=== PATIENT | male | born 1940 | race Caucasian/White ===

== ENCOUNTER 2019-05-11 09:52 | Observation (INO) ==
--- NOTE | 2019-05-11 10:03 | EKG Report ---
Test Performed on : 05/11/2019 09:54:16 AM Test Reason : CP Blood Pressure : / mmHG Vent. Rate : 081 BPM Atrial Rate : 081 BPM P-R Int : 186 ms QRS Dur : 072 ms QT Int : 384 ms P-R-T Axes : 037 005 032 degrees QTc Int : 446 ms Sinus rhythm. with frequent premature ventricular complexes. Otherwise normal ECG When compared with ECG of 06-AUG-2018 19:15, premature ventricular complexes. are now present Unconfirmed Result
--- NOTE | 2019-05-11 10:51 | Diag Imaging Result Doc PS360 ---
EXAM: CHEST-1 VIEW 05/11/2019 HISTORY: cp TECHNIQUE: AP portable upright at 1044 COMMENT: Compared to 08/06/2018 there has been no significant change in the appearance the chest. IMPRESSION: Stable chest. Electronically signed by Roberto Franz 05/11/2019 10:48 AM
[2019-05-11 11:01] LABS: BILIRUBIN URINE NEGATIVE (NEGATIVE); BLOOD URINE NEGATIVE (NEGATIVE); COLOR YELLOW; GLUCOSE URINE NEGATIVE (NEGATIVE); KETONE URINE NEGATIVE (NEGATIVE); LEUKOCYTES URINE SMALL (NEGATIVE); NITRITE URINE NEGATIVE (NEGATIVE); PH URINE 6.5; PROTEIN URINE NEGATIVE (NEGATIVE); SP GRAVITY URINE 1.013; TURBIDITY URINE CLEAR (CLEAR); URINE SOURCE CLEAN CATCH; UROBILINOGEN URINE NORMAL (NORMAL)
[2019-05-11 11:02] LABS: UR EPITHELIAL CELLS <10 /HPF (<10); URINE BACTERIA NEGATIVE /HPF; URINE RBC <10 /HPF (<10)
[2019-05-11 11:11] LABS: BASO# 0.02 X1000 (0.0-0.2); BASO% 0.3 % (0.0-0.8); EOS# 0.19 X1000 (0.0-0.7); EOS% 2.7 % (0.0-10.0); HEMATOCRIT 40.9 % (42.0-52.0); HEMOGLOBIN 14.4 g/dL (14.0-18.0); IMM GRAN# 0.03 X1000 (0.0-0.04); IMM GRAN% 0.4 % (0.0-0.5); LYMPH# 1.26 X1000 (1.2-3.4); LYMPH% 18.2 % (20.5-51.1); MCH 29.8 PG (27-31); MCHC 35.2 g/dL (33-37); MCV 84.5 FL (81-99); MONO# 0.77 X1000 (0.11-0.59); MONO% 11.1 % (1.7-9.3); MPV 9.9 FL (7.4-10.4); NEUT# 4.64 X1000 (1.4-6.5); NEUT% 67.3 % (42.2-75.2); PLT 234 X1000 (130-400); RBC 4.84 XMIL (4.7-6.1); RDW 13.1 % (11.5-14.5); WBC 6.91 X1000 (4.8-10.8)
[2019-05-11] MEDS ORDERED: DILAUDID IV ONE (11:12)
[2019-05-11] MEDS ORDERED: ZOFRAN IV ONE (11:12)
[2019-05-11 11:23] LABS: AGAP 11; ALB/GLOB RATIO 1.7; ALBUMIN 3.9 g/dL (3.5-5.0); ALKALINE PHOSPHATASE 86 U/L (32-122); BUN 20 mg/dL (8-22); CALCIUM 8.5 mg/dL (8.8-10.2); CHLORIDE 101 mmol/L (98-107); COSMO 287; CREATININE 0.9 mg/dL (0.7-1.2); ESTIMATED GFR > 60; GLUCOSE 218 mg/dL (70-104); GOT 15 U/L (10-34); GPT 13 U/L (10-44); SODIUM 139 mmol/L (136-145); TCO2 27 mmol/L (25-35); TOTAL BILIRUBIN 0.72 mg/dL (0.20-1.00); TOTAL PROTEIN 6.2 g/dL (6.3-8.3)
[2019-05-11 11:33] LABS: INR 1.13; PROTIME 14.7 Seconds (11.0-16.0)
[2019-05-11 11:34] LABS: PTT 36.6 Seconds (22.3-41.8)
--- NOTE | 2019-05-11 14:50 | PROVIDER DOCUMENTATION ---
This chart was entered by Jaleesa Harvey Scribe, acting as scribe for Luis Miguel Oliva MD. HPI-Chest Pain - General Chief Complaint: Chest Pain Stated Complaint: CP Time Seen by Provider: 05/11/19 10:10 Source: patient Allergies/Adverse Reactions: Patient Allergies Allergy/AdvReac Type Severity Reaction Status Date / Time No Known Allergies Allergy Verified 05/11/19 10:22 Home Medications: Home Medication List Medication Instructions Recorded Confirmed Last Taken Type ATORVAstatin [Lipitor] 40 mg PO QHS 05/11/19 05/11/19 05/10/19 History Amlodipine Besylate/Benazepril 1 ea PO QAM 05/11/19 05/11/19 05/11/19 History [Amlodipine-Benazepril 10-20 mg] Aspirin [Aspirin EC] 81 mg PO BID 05/11/19 05/11/19 05/11/19 History 324mg Carvedilol [Coreg] 12.5 mg PO BID 05/11/19 05/11/19 05/11/19 History Cetirizine HCl [Zyrtec] 10 mg PO QAM 05/11/19 05/11/19 05/11/19 History Hydrochlorothiazide 12.5 mg PO QAM 05/11/19 05/11/19 05/11/19 History Meclizine [Antivert] 12.5 mg PO BID 05/11/19 05/11/19 05/11/19 History Olanzapine [Zyprexa] 5 mg PO QHS 05/11/19 05/11/19 05/10/19 History Pantoprazole [Protonix] 40 mg PO QAM 05/11/19 05/11/19 05/11/19 History - History of Present Illness-CP Nature of Presenting Problem: 79yom presents to ED cc left side chest pain that doesn't radiate anywhere but increases with movement and deep breathing since 10pm last night and subsided at 2am. Pt reports the pain started back this morning but is mild. Pt denies injury, n/v/d or SOB. Pt has hx of HTN and hyperlipidemia. Pt is in no acute distress upon exam. Location: reports: other (left side) Chest Pain Radiation: reports: no radiation Quality of Pain: reports: sharp Severity in ED: mild Onset/Duration: last night (10pm) Timing: still present Context/Activities at Onset: reports: light activity Modifying Factors: worse with: breathing, movement Associated Symptoms: reports: denies symptoms Nitro Today/Relief: no nitro taken today Prior Chest Pain/Cardiac Workup: reports: no prior chest pain Similar Symptoms Previously?: No Recently Seen Here or By Another Healthcare Provider: No Review of Systems - Adult - REVIEW OF SYSTEMS - ADULT Constitutional: reports: see HPI. denies: chills, fever, fatique Eyes: reports: no symptoms reported Ears, Nose, Mouth & Throat: reports: no symptoms reported Cardiovascular: reports: see HPI, chest pain Respiratory: reports: see HPI. denies: shortness of breath, wheezing Gastrointestinal: reports: see HPI. denies: diarrhea, nausea, vomiting Genitourinary: reports: no symptoms reported Musculoskeletal: reports: no symptoms reported Integumentary: reports: no symptoms reported Neurological: reports: no symptoms reported Psychiatric: reports: no symptoms reported Endocrine: reports: no symptoms reported Hematologic/Lymphatic: reports: no symptoms reported Allergic/Immunologic: reports: no symptoms reported All Other Systems: Reviewed and Negative Past History - Adult - PAST MEDICAL HISTORY-ADULT Review of Records: reports: Nursing Assessment Review, Medications Reviewed, Social history reviewed & non-contributory. Major Childhood Illnesses: reports: denies history Cardiovascular: reports: denies history Respiratory: reports: denies history Gastrointestinal: reports: denies history Obstetrical/Gynecological: reports: denies history Genitourinary: reports: denies history Musculoskeletal: reports: denies history Neurological: reports: denies history Endocrine/Immune: reports: denies history Other Conditions: reports: denies history - IMMUNIZATION STATUS Childhood Immunizations: See Nurse Assessment Flu Vaccine: See Nurse Assessment - FAMILY HISTORY Family History: reviewed, not pertinent - SOCIAL HISTORY Smoking: denies Physical Exam-General - PHYSICAL EXAM-ADULT Initial Vital Signs Reviewed: Yes - CONSTITUTIONAL General Appearance: appears well, alert, no apparent distress. negative: anxious, combative - EYES Eyes: PERRL/EOMI, pink conjunctivae. negative: photophobia - HEAD, EARS, NOSE, MOUTH & THROAT HENMT: normocephalic/atraumatic, moist mucous membranes. negative: angioedema - RESPIRATORY Respiratory: chest non-tender, lungs clear, normal breath sounds. negative: stridor, wheezing - CARDIOVASCULAR Cardiovascular: normal peripheral pulses, regular rate, rhythm, no edema. negative: bradycardia, tachycardia - MUSCULOSKELETAL Extremity: normal inspection. negative: deformity - SKIN Integumentary: normal color. negative: diaphoresis, jaundice, rash - PSYCHIATRIC Psych/Mental Status: normal mood/affect, oriented x 3. negative: anxious, disheveled - HEART Score HEART Score: History: Moderately Suspicious HEART Score: ECG: Non-Specific Repolarization Disturbance/LBBB/PM HEART Score: Age: > or = 65 Years HEART Score: Risk Factors for Atherosclerotic Disease: 1 or 2 Risk Factors HEART Score: Troponin: < or = Normal Limit Total HEART Score:: 5 Progress - PLAN OF CARE/RESULTS Progress/Plan/Lab Results: Vital Signs - 8 hr 05/11/19 09:56 Temperature 97.9 F Pulse Rate 84 Respiratory Rate 18 Blood Pressure 148/74 O2 Sat by Pulse Oximetry 95 Laboratory Results - last 24 hr 05/11/19 05/11/19 05/11/19 10:40 10:40 10:40 WBC 6.91 RBC 4.84 Hgb 14.4 Hct 40.9 L MCV 84.5 MCH 29.8 MCHC 35.2 RDW Std Deviation 13.1 Plt Count 234 MPV 9.9 Immature Gran % (Auto) 0.4 Neut % (Auto) 67.3 Lymph % (Auto) 18.2 L [place] % (Auto) 11.1 H Eos % (Auto) 2.7 Baso % (Auto) 0.3 Immature Gran # (Auto) 0.03 Neut # (Auto) 4.64 Lymph # (Auto) 1.26 [place] # (Auto) 0.77 H Eos # (Auto) 0.19 Baso # (Auto) 0.02 PT INR PTT (Actin FS) Sodium 139 Potassium 4.0 Chloride 101 Carbon Dioxide 27 Anion Gap 11 BUN 20 Creatinine 0.9 Estimated GFR/1.73 m2 > 60 BUN/Creatinine Ratio 22 Glucose 218 H Calculated Osmolality 287 Calcium 8.5 L Total Bilirubin 0.72 AST 15 ALT 13 Alkaline Phosphatase 86 Troponin T Grj-I-Yjghkbvnist Pept 200 Total Protein 6.2 L Albumin 3.9 Globulin 2.3 Albumin/Globulin Ratio 1.7 Urine Source Urine Color Urine Turbidity Urine pH Ur Specific [place] Urine Protein Ur Glucose (Stick) Ur Ketones (Stick) Urine Blood Urine Nitrite Urine Bilirubin Urobilinogen Dipstick Urine Leukocytes Urine WBC (Auto) Urine RBC (Auto) U Epithel Cells (Auto) Urine Bacteria (Auto) 05/11/19 05/11/19 05/11/19 10:40 10:40 10:54 WBC RBC Hgb Hct MCV MCH MCHC RDW Std Deviation Plt Count MPV Immature Gran % (Auto) Neut % (Auto) Lymph % (Auto) [place] % (Auto) Eos % (Auto) Baso % (Auto) Immature Gran # (Auto) Neut # (Auto) Lymph # (Auto) [place] # (Auto) Eos # (Auto) Baso # (Auto) PT 14.7 INR 1.13 PTT (Actin FS) 36.6 Sodium Potassium Chloride Carbon Dioxide Anion Gap BUN Creatinine Estimated GFR/1.73 m2 BUN/Creatinine Ratio Glucose Calculated Osmolality Calcium Total Bilirubin AST ALT Alkaline Phosphatase Troponin T < 0.010 [id number]-Zfsuintgfxm Pept Total Protein Albumin Globulin Albumin/Globulin Ratio Urine Source CLEAN CATCH Urine Color YELLOW Urine Turbidity CLEAR Urine pH 6.5 Ur Specific [place] 1.013 Urine Protein NEGATIVE Ur Glucose (Stick) NEGATIVE Ur Ketones (Stick) NEGATIVE Urine Blood NEGATIVE Urine Nitrite NEGATIVE Urine Bilirubin NEGATIVE Urobilinogen Dipstick NORMAL Urine Leukocytes SMALL A Urine WBC (Auto) 10-20 A Urine RBC (Auto) <10 U Epithel Cells (Auto) <10 Urine Bacteria (Auto) NEGATIVE Orders Category Date Time Status CHEST-1 VIEW [RAD] Stat Exams 05/11/19 10:10 Completed CBC WITH ELECTRONIC DIFF [HEME] Stat Lab 05/11/19 10:40 Completed COMPREHENSIVE METABOLIC PANEL [CHEM] Stat Lab 05/11/19 10:40 Completed PRO B-NATRIURETIC PEPTIDE Stat Lab 05/11/19 10:40 Completed PT [PROTIME WITH INR] [COAG] Stat Lab 05/11/19 10:40 Completed PTT [COAG] Stat Lab 05/11/19 10:40 Completed TROPONIN T Stat Lab 05/11/19 10:40 Completed TROPONIN T Stat Lab 05/11/19 14:46 Ordered URINALYSIS W/POSS RFLX CULT [URINALYSIS] Stat Lab 05/11/19 10:54 Completed Hydromorphone [Dilaudid] Med 05/11/19 11:12 Discontinued 1 mg IV NOW ONE Ondansetron [Zofran] Med 05/11/19 11:12 Discontinued 4 mg IV NOW ONE EKG [EKG] Stat Ther 05/11/19 10:00 Draft EKG [EKG] Stat Ther 05/11/19 11:12 Ordered EKG [EKG] Stat Ther 05/11/19 14:45 Ordered Result Diagrams: 05/11/19 10:40 05/11/19 10:40 - REASSESSMENT Reassessment #1 Time Reassessed: 11:22 Status: worsening (pt reports pain is increased but is refusing pain meds that were ordered) - EKG 1 Time of EKG reading by physician:: 09:54 EKG Read and Signed by:: Luis Miguel Oliva EKG Interpretation (*Must complete 3 of following elements*): Normal Rate: 81 Rhythm: sinus w/frequent PVC QRS: PVC's CO Interval: normal - XRAY 1 XRAY: Bilateral XRAY Study: Chest Impression: See EMR Report (IMPRESSION: Stable chest. Electronically signed by Roberto Franz 05/11/2019 10:48 AM) - CONSULTS/PCP/HOSPITALIST Notification #1 *Consult/PCP/Hospitalist*: Kristen for hospitalist Time Discussed: 14:48 Consult Disposition: Will see in ED, Admit Departure - Departure Date of Disposition Decision: 05/11/19 Time of Disposition Decision: 14:49 DIAGNOSIS: Chest pain, HTN (hypertension) Disposition: ADMITTED INPATIENT 09 Certified Medical Emergency: Emergent Condition: Fair Referrals and Follow-Ups: Paulo Trivedi CRNP [Primary Care Provider] - - Critical Care Note This patient required my direct & personal management of CC.: No Attestation - Physician/ BRYNN Attestation Patient care was provided by Advanced Practice Provider:: No The physician spent face to face time with patient:: Yes Advanced Practice Provider documentation review:: Supervising physician onsite and consulted in the evaluation and care of this patient. The physician did have a face to face encounter with the patient. This chart was documented by the indicated scribe, (Jaleesa Harvey Scribe) and accurately reflects the services I performed and decisions made by me, Luis Miguel Oliva MD, as attested by the provider's signature.
--- NOTE | 2019-05-11 15:04 | EKG Report ---
Test Performed on : 05/11/2019 2:44:19 PM Test Reason : chest pain Blood Pressure : / mmHG Vent. Rate : 069 BPM Atrial Rate : 069 BPM P-R Int : 180 ms QRS Dur : 090 ms QT Int : 432 ms P-R-T Axes : 030 008 021 degrees QTc Int : 462 ms Normal sinus rhythm. Increased R/S ratio in V1, consider early transition or posterior infarct Abnormal ECG When compared with ECG of 11-MAY-2019 09:54, (Unconfirmed) premature ventricular complexes. are no longer present Unconfirmed Result
[2019-05-11] MEDS ORDERED: TYLENOL PO PRN (18:01)
[2019-05-11] MEDS ORDERED: ZOFRAN IV PRN (18:01)
[2019-05-11] MEDS ORDERED: NITROGLYCERIN SL PRN (18:01)
[2019-05-11] MEDS ORDERED: LIPITOR PO SCH (21:00)
[2019-05-11] MEDS ORDERED: ZYPREXA PO SCH (21:00)
--- NOTE | 2019-05-11 21:21 | HISTORY AND PHYSICAL ---
PRIMARY CARE PROVIDER: BÁRBARA Murphy. NEUROSURGEON: Dr. Blank. CARDIOLOGY: He has seen Dr. Burnett in the past, but it has been years ago. CHIEF COMPLAINT: Chest pain. HISTORY OF PRESENT ILLNESS: Mr. 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 He reported around 10 p.m. last night until 3 a.m., he started having a "squeezing chest pain on the left side." He rated it an 8 to 9/10. There was some associated diaphoresis, but no shortness of breath. No more than his normal dizziness. No palpitations. No nausea, no vomiting. There was no radiation. The only thing that relieved his pain was taking a baby aspirin. Even the movement of his head made the pain worse, but after 3 a.m., it has essentially resolved, and he reported maybe only a slight residual pain at this time. We will admit him to a medical telemetry floor for chest pain rule out. His 2 sets of cardiac enzymes are now negative. REVIEW OF SYSTEMS: A 12-point review of systems is completely negative, except for those mentioned in HPI. PAST MEDICAL HISTORY: 1. Acoustic neuroma. 2. Hypertension. 3. Hyperlipidemia. 4. Anxiety. PAST SURGICAL HISTORY: 1. Surgery on his acoustic neuroma. 2. Bilateral knee replacement. 3. Bilateral cataract surgery. SOCIAL HISTORY: He is . He has a daughter at the bedside. He has been for 57 years. No tobacco, alcohol, or illicit drug use. ALLERGIES: Geodon, Ativan. They cause him to be somewhat aggressive and had to be put in restraints. HOME MEDICATIONS: Still being compiled. PHYSICAL EXAMINATION: VITAL SIGNS: Temperature is 97.9 degrees, heart rate 84, respirations 18, blood pressure 148/74, O2 is 95% on room air. GENERAL: Mr. Dozier is a pleasant, 79-year-old, male, who is sitting up in the bed in no acute distress. HEENT: Atraumatic, normocephalic. PERRL. NECK: Supple. Trachea midline. CARDIOVASCULAR: S1, S2 appreciated. No murmurs, gallops, rubs noted. RESPIRATORY: Lung sounds clear bilaterally. GASTROINTESTINAL: Obese, soft, nontender, nondistended. Positive bowel sounds in 4 quadrants. LOWER EXTREMITIES: Trace edema. NEUROLOGIC: No focal deficits noted. However, he does walk with a walker at home secondary to chronic dizziness from his acoustic neuroma after surgery. DIAGNOSTIC DATA: EKG, normal sinus rhythm with frequent PVC. Chest x-ray is stable. Followup EKG, normal sinus rhythm at 69 beats per minute. LABORATORY: Two sets of troponins have been negative. CBC, essentially unremarkable. CMP, sodium 139, potassium 4.0, BUN 20, creatinine 0.9, blood glucose is 218. Urinalysis is negative for bacteria, negative for nitrites. ASSESSMENT AND PLAN: 1. Chest pain rule out. Two sets of cardiac enzymes have been negative. We will get an EKG, consult Cardiology, and make him n.p.o. after midnight. Continue on full-dose aspirin. Set him up for a stress test in the a.m. 2. Hyperglycemia. We will check a hemoglobin A1c in the a.m. and continue with patterned blood sugars. He has no known diabetic history. 3. Acoustic neuroma, status post surgery with chronic dizziness. Aware. We will continue his Antivert when reconciled. 4. Hypertension. 5. Hyperlipidemia. 6. Anxiety. We will continue all home medications once they have been verified. 7. Further recommendations to follow physician evaluation, laboratory, and diagnostic data. Dictated by BÁRBARA Ricketts for Alycia Redding MD cc: MD Paulo Boykin CRNP Joel Pickett
[2019-05-11] MEDS: COREG PO SCH (21:52)
--- NOTE | 2019-05-12 06:24 | Diag Imaging Result Doc PS360 ---
CHEST-PORTABLE - 05/12/2019 INDICATION: Chest Pain COMPARISON: 05/11/2019 FINDINGS: The lungs are normally expanded and clear. Heart size and mediastinal contours are normal. No pneumothorax or pleural effusion. IMPRESSION: Negative exam. Electronically signed by Caden Martinez 05/12/2019 6:22 AM
[2019-05-12] MEDS ORDERED: PRILOSEC PO SCH (07:00)
--- NOTE | 2019-05-12 07:41 | EKG Report ---
Test Performed on : 05/12/2019 06:49:03 AM Test Reason : CP Blood Pressure : / mmHG Vent. Rate : 070 BPM Atrial Rate : 070 BPM P-R Int : 182 ms QRS Dur : 086 ms QT Int : 428 ms P-R-T Axes : 048 027 027 degrees QTc Int : 462 ms Normal sinus rhythm. Normal ECG When compared with ECG of 11-MAY-2019 14:44, (Unconfirmed) No significant change was found Confirmed by Luis Alfredo BOSS, Bright Chavira ([id number]) on 05/14/2019 6:55:31 AM
[2019-05-12 08:08] LABS: BASO# 0.03 X1000 (0.0-0.2); BASO% 0.6 % (0.0-0.8); EOS# 0.22 X1000 (0.0-0.7); EOS% 4.1 % (0.0-10.0); HEMATOCRIT 42.9 % (42.0-52.0); HEMOGLOBIN 14.9 g/dL (14.0-18.0); IMM GRAN# 0.02 X1000 (0.0-0.04); IMM GRAN% 0.4 % (0.0-0.5); LYMPH# 1.07 X1000 (1.2-3.4); MCH 29.4 PG (27-31); MCHC 34.7 g/dL (33-37); MCV 84.8 FL (81-99); MONO# 0.53 X1000 (0.11-0.59); MONO% 9.9 % (1.7-9.3); MPV 9.8 FL (7.4-10.4); NEUT# 3.49 X1000 (1.4-6.5); PLT 242 X1000 (130-400); RBC 5.06 XMIL (4.7-6.1); RDW 13.2 % (11.5-14.5); WBC 5.36 X1000 (4.8-10.8)
[2019-05-12 08:09] LABS: HEMOGLOBIN A1C 5.6 % (4.8-6.0)
[2019-05-12 08:18] LABS: AGAP 10; ALB/GLOB RATIO 1.4; ALBUMIN 3.8 g/dL (3.5-5.0); ALKALINE PHOSPHATASE 82 U/L (32-122); BUN 15 mg/dL (8-22); CALCIUM 8.6 mg/dL (8.8-10.2); CHLORIDE 105 mmol/L (98-107); CHOLESTEROL 121 mg/dL (0-200); COSMO 289; CREATININE 0.8 mg/dL (0.7-1.2); ESTIMATED GFR > 60; GLUCOSE 122 mg/dL (70-104); GOT 16 U/L (10-34); GPT 13 U/L (10-44); HDL 33 mg/dL (35-55); LDL 73 mg/dL; SODIUM 144 mmol/L (136-145); TCO2 29 mmol/L (25-35); TOTAL BILIRUBIN 0.74 mg/dL (0.20-1.00); TOTAL PROTEIN 6.5 g/dL (6.3-8.3); TRIGLYCERIDES 75 mg/dL (39-160); VLDL 15 mg/dL
[2019-05-12] MEDS ORDERED: ASPIRIN PO SCH (09:00)
[2019-05-12] MEDS ORDERED: LEXISCAN ONE (09:49)
[2019-05-12 11:23] VITALS: BP 136/61
[2019-05-12] MEDS: COREG PO SCH (11:25)
--- NOTE | 2019-05-12 15:44 | Diag Imaging Result Document ---
PROCEDURE NAME: MYOCARDIAL PERF SCAN, STR/REST - 05/12/2019 LEXISCAN CARDIOLITE STRESS: FINDINGS: Lexiscan was infused per standard protocol. There was no chest pain. Stress electrocardiogram was negative for ischemia. Following Lexiscan infusion, Cardiolite was injected. Gated SPECT images were obtained in standard views. Images revealed significant diaphragmatic and chest wall attenuation. There is large size, moderate grade, fixed defect in the inferior wall and inferolateral wall suggestive of scar. Cannot rule out attenuation defect. There is no evidence of ischemia. Left ventricular cavity size was normal. Left ventricular ejection fraction by gated SPECT was 79%. The patient underwent a Lexiscan Cardiolite stress. Lexiscan was infused per standard protocol. There was no chest pain. Stress electrocardiogram was negative for ischemia. CONCLUSIONS: 1. No chest pain. 2. Negative Lexiscan stress electrocardiogram. 3. Myocardial perfusion images revealed no evidence of ischemia. 4. There is a large size, moderate grade, fixed defect in the inferior wall, inferolateral wall, diagnostic of infarct or scar. Cannot rule out chest wall attenuation. Left ventricular ejection fraction by gated SPECT was 79%. There is no evidence of ischemia. cc: Raj Garcia MD
== END 2019-05-12 17:43 | disposition home or self-care (01) ==
LOC: ED 09:52 → EDIPHOLD 09:52 → 3N 21:19
PROVIDERS: ATTEND Internal Medicine